=== PATIENT | female | born 1975 ===

== ENCOUNTER 2018-02-27 13:45 | Emergency (ER) | payer OTHER, BC ==
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
[2018-02-27 14:09] VITALS: RESP 18; TEMP 98.3; BMI 20.1
--- NOTE | 2018-02-27 17:20 | RAD ---
PROCEDURE: Right Hip Radiographs. HISTORY: injury COMPARISON: None. FINDINGS: BONES: No acute fracture. Accessory ossicle adjacent to the superolateral acetabulum. JOINTS: Normal. SOFT TISSUES: Normal. OTHER FINDINGS: Intrauterine device in place. IMPRESSION: No demonstrated fracture or dislocation.
--- NOTE | 2018-02-27 17:21 | RAD ---
Date of service: 02/27/2018 PROCEDURE: Bilateral Knee Radiographs. HISTORY: injury COMPARISON: None. FINDINGS: BONES: Right Knee: No acute fracture. Left Knee: No acute fracture. JOINTS: Right Knee: Unremarkable. Left knee: Unremarkable. SOFT TISSUES: Right Knee: Normal. Left Knee: Normal. JOINT EFFUSION: Right Knee: None. Left Knee: None. OTHER FINDINGS: None. IMPRESSION: No demonstrated fracture or dislocation.
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
--- NOTE | 2018-02-27 17:22 | RAD ---
Date of service: 02/27/2018 HISTORY: injury COMPARISON: No prior. FINDINGS: BONES: Alignment maintained. No fracture. DISC SPACES: Normal. SOFT TISSUES: Normal. OTHER FINDINGS: None. IMPRESSION: Normal radiographs of the thoracic spine.
[2018-02-27 17:48] VITALS: BP 108/74; PULSE 80; O2SAT 99
== END 2018-02-27 17:48 | disposition home or self-care (01) ==
LOC: ED 13:45
DX: M54.5 Low back pain (principal); M25.551 Pain in right hip; M25.561 Pain in right knee; V03.90XA Pedestrian on foot injured in collision with car, pick-up truck or van, unspecified whether traffic or nontraffic accident, initial encounter; Y92.410 Unspecified street and highway as the place of occurrence of the external cause